=== PATIENT | male | born 1960 | race Caucasian/White ===

== ENCOUNTER 2016-08-10 22:24 | Emergency (ER) | payer MEDICARE, MEDICAID ==
[~2016-08-10] VITALS: Ht 160 cm; Wt 65.9 kg
[~2016-08-10 22:24] MED LIST: ACET325S18 PO; AMIT50TA15 PO; AMO500 PO; BACITRACIN PO; DSS100 PO; FURO20TA PO; LEVO125T2 PO; LORA-303 PO; METR45CR TP; MULT1CAP52 PO; POLY17PO13 PO; POTA8CAP10 PO; QTP100T PO; QTP25T PO
[2016-08-10 22:29] VITALS: BP 131/77; RESP 20; O2SAT 99
--- NOTE | 2016-08-11 01:01 | ED.REPORT ---
HPI-General Illness Date of Service Aug 11, 2016 ED Provider: Dr. Rodrigez A 55 year old male with a history of downs syndrome, HTN, and Ventricular septal defect. presents to the ED complaining of profuse bleeding from nose and mouth. 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 He is not on any blood thinners. Nursing Notes Stated Complaint: BLEEDING FROM NOSE AND MOUTH Chief Complaint: ENT & Mouth Nursing Notes Reviewed: Yes Allergies: Coded Allergies: No Known Drug Allergies (Verified Allergy, Unknown, 08/10/16) Scheduled ([Bacitracin]) 500 U PO PRN Acetaminophen (Mapap) 325 Mg/10.15 Ml Solution 650 MG PO PRN Amitriptyline-Expunged Drug, Do Not Renew! (Amitriptyline-Expunged Drug, Do Not Renew!) 50 Mg Tablet 50 MG PO HS Amoxicillin (Amoxil) 500 Mg Capsule 500 MG PO TID Docusate Sod-Expunged Drug, Do Not Renew! (Docusate Sod-Expunged Drug, Do Not Renew!) 100 Mg Capsule 100 MG PO BID Furosemide-Expunged Drug, Do Not Renew! (Furosemide-Expunged Drug, Do Not Renew! ) 20 Mg Tablet 20 MG PO DAILY Levothyroxine-Expunged Drug, Do Not Renew! (Synthroid-Expunged Drug, Do Not Renew!) 125 Mcg Tablet 125 MCG PO DAILYAC 0.125 MG = 125 MCG Lorazepam-Expunged Drug, Do Not Renew! (Lorazepam-Expunged Drug, Do Not Renew!) 1 Mg Tab 1 MG PO PRN Metronidazole-Expunged Drug, Do Not Renew! (Metronidazole-Expunged Drug, Do Not Renew!) 45 Gm Cream.gm. TP BID APPLY THIN LAYER BY TOPICAL ROUTE IN THE MORNING AND EVENING Multivits&Mins/Fa/Coenzyme Q10 (Aquadeks Softgel) 1 Each Capsule 1 EACH PO DAILY PEG 3350-Expunged Drug, Do Not Renew! (Miralax-Expunged Drug, Do Not Renew!) 12 Ea Powd.pack PO DAILY Potassium Chl-Expunged Drug, Do Not Renew! (Potassium Chl-Expunged Drug, Do Not Renew!) 8 Meq Capsule.sa 8 MEQ PO DAILY with food QUEtiapine-Expunged Drug, Do Not Renew! (SEROquel-Expunged Drug, Do Not Renew!) 25 Mg Tablet 25 MG PO BID QUEtiapine-Expunged Drug, Do Not Renew! (SEROquel-Expunged Drug, Do Not Renew!) 100 Mg Tablet 100 MG PO HS General Time Seen by MD: 01:01 Chief Complaint Other (epistaxis) Hx Obtained From: Patient Sudden in Onset?: No Onset Occurred: 5 - 8 hours ago Symptom Duration: Intermittent Severity: Current: Mild Severity: Maximum: Mild Recent Healthcare: No recent doctor visit Similar Sx Previous: No Past Medical History Past Medical History Ventricular septal defect, recently evaluated by sightseeing guide. Downs syndrome Hypothyroidism. Patient is not on any blood thinners. Reports: Hypertension Past Surgical History None reported. Review of Systems Unable to Obtain ROS Mental status (Patient has downs syndrome) Physical Exam Vital Signs Vital Signs Date Time Temp Pulse Resp B/P Pulse Ox O2 Delivery O2 Flow Rate FiO2 08/11/16 01:41 22 112/74 98 Room Air 08/10/16 22:29 36.6 83 20 131/77 99 Room Air Initial VS: Reviewed General/Constitutional: Awake, Alert No bleeding. Head / Eyes: PERRL, EOMI Patient has facial features consistent with Downs Syndrome. Dried blood in right nares. Respiratory / Chest: Atraumatic, Breath sounds NL, Breath sounds = bilat, No respiratory distress, No rales, No rhonchi, No wheezing Heart Sounds / Murmur: Positive: Murmur present... (Harsh ejection murmur consistent with VSD. ) Abdomen: No guarding, No rebound Upper Extremities Upper Extremity / MS: No swelling, No edema Skin: Atraumatic, Color NL, Warm, Dry no lacerations. Neurologic: Oriented X3, Speech NL Normal neurological exam. Patient follows directions. Re-Eval/Medical Decision Med Decision/Clinical Course It looks like all the bleeding stop. I think no further intervention is indicated. We will refer for ear nose and throat if he has continued epistaxis Source of Hx: Old records Time of Eval: 01:01 Re-Evaluation/Progress Note: Explained test results, diagnosis, and plan for discharge. 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 All questions addressed. Counseled Regarding: Diagnosis, Need for follow-up, When/why to return to ED Discharge & Departure Primary Impression: Epistaxis Disposition: Home Discharge Condition All VS Reviewed: Yes Condition: Stable Patient Instructions: Epistaxis (ED) Additional Instructions: Read the after care instructions given. Direct pressure to his nares for 20 minutes if it starts to bleed again. If this does not stop the bleeding then come back to emergency department. Contact the referral ear nose and throat surgeon for follow-up evaluation of the epistaxis. Keeping his nares moist with ointment to prevent drying and cracking may help prevent future epistaxis. Do not hesitate to return if any problems or any worsening symptoms. Referrals: Christiano Barclay DO (PCP) Leandraibkori Attestation Portions of this note were transcribed by Hector Kidd. I, Dr. Rodrigez personally performed the history, physical exam and medical decision-making; I reviewed and confirmed the accuracy of the information in the transcribed note. Signed by: Darshana Ralph, 08/11/2016, 0222. copies to: Christiano Barclay Todd P DO Aug 11, 2016 01:01 Hector Kidd Aug 11, 2016 01:44
[2016-08-11 01:41] VITALS: BP 112/74; RESP 22; O2SAT 98
== END 2016-08-11 01:55 | disposition home or self-care (01) ==
LOC: SED 22:24
DX: R04.0 Epistaxis (principal); K13.79 Other lesions of oral mucosa; Q90.9 Down syndrome, unspecified; I10 Essential (primary) hypertension; E03.9 Hypothyroidism, unspecified